=== PATIENT | female | born 1975 | race Caucasian/White ===

== ENCOUNTER 2024-01-27 20:24 | Observation (INO) ==
--- NOTE | 2024-01-27 20:55 | Emergency Department Note ---
Impression & Plan Syncope, Nausea, Tachycardia ED Provider Note NAME: JANICE PALACIOS AGE: 48 SEX: F : 1975 ARRIVES VIA: Ambulance INFORMANT: Patient ED PROVIDER(S): Eze Alfredo DO CHIEF COMPLAINT: syncope HPI: Patient is a 48-year-old female who presents to the ER for syncopal episode x 3. She was sitting with her friend at dinner felt very hot and flushed. She felt lightheaded when outside and she passed out. She woke back up and then passed out this occurred for a total of 3 times. She does not remember this occurring. She denies any chest pain or shortness of breath that she was aware of. No belly pain. She was nauseated on the way over here but not during the episode. No dysuria, urgency, or frequency. No weakness or numbness in the arms or legs. No other exacerbating or remitting factors. Denies any history of diabetes, hypertension, hyperlipidemia or CAD. ADDITIONAL HISTORY OBTAINED: Per HPI Chronic Medical/Social Conditions Affecting Care: Per HPI PAST MEDICAL HISTORY:See Below PAST SURGICAL HISTORY:See Below FAMILY HISTORY:See Below SOCIAL HISTORY:See Below HOME MEDICATIONS:See Below ALLERGIES:See Below VITALS:See Below PHYSICAL EXAMINATION: GENERAL: Sitting up in bed, alert, well appearing, well nourished, no distress, non-toxic EYE EXAM: normal conjunctiva. PERRL and EOM's intact. OROPHARYNX: no exudate, no erythema, lips, buccal mucosa, and tongue normal and mucous membranes are moist NECK: supple, no nuchal rigidity, no adenopathy, non-tender LUNGS: Clear to auscultation. Normal chest wall mechanics HEART: no murmurs, S1 normal and S2 normal ABDOMEN: abdomen soft, non-tender, normo-active bowel sounds, no masses, no rebound or guarding. BACK: Back is symmetrical on inspection and there is no deformity, no midline tenderness, no CVA tenderness. SKIN: no rashes and no bruising UPPER EXTREMITIES: upper extremities are grossly normal. LOWER EXTREMITIES: No pitting edema. Calves are equal bilaterally NEURO EXAM: Normal sensorium, cranial nerves II-XII intact, normal speech, no weakness of arms, no weakness of legs. No drift. Finger to nose intact. Gross sensation intact. MEDICAL DECISION MAKING: Patient is a 48-year-old female who presents to the ER for the above-stated complaint. IV was established and blood work was obtained. Labs show no significant leukocytosis or anemia. D-dimer was negative and low risk patient will not be pursued any further. BMP along LFTs bilirubin was unremarkable. Troponins were negative x 2. Lipase normal. Alcohol negative. Patient did pass out on 3 separate occasions. She has remained persistently tachycardic. Chest x-ray was unremarkable. EKG was nondiagnostic. She was given IV fluids and oral Tylenol. She was updated bedside. Discussed case with the hospitalist for further evaluation management and treatment due to 3 episodes of syncope which were witnessed. There is no seizure activity. Again I do favor vasovagal in nature but cannot be certain with this occurring 3 times did favor observation. Consults/Care Managements Discussions: Per [facility] Triage Nursing notes reviewed. Limited review of prior medical records performed Vital Signs: reviewed and remarkable for no significant abnormalities Differential diagnosis: Differential Diagnosis includes but is not limited to ischemic Stroke, hemorrhagic stroke, bells palsy, mass, neoplasm, migraine headache, seizure, subarachnoid hemorrhage, TIA, and transient global amnesia. ER treatment provided: See below Diagnostics interpreted by me include EKG and cardiac monitoring as listed below: -Cardiac Monitoring: An order was placed for continuous cardiac monitoring. The monitor shows a rate of 80 with sinus rhythm. -ECG: Sinus rhythm rate of 88 Right axis No PVCs QTc 445 -Laboratory studies:Interpreted by me as stated above in [facility] and shown below. Imaging studies: Xrays: As interpreted by me: Portable AP upright 1 view of the chest shows no focal infiltrate CTs show: none Procedures:none Critical Care: None Past Med/Surg History Problem List (Updated 01/28/24 @ 00:30 by Eze Alfredo DO) Tachycardia (Acute) Nausea (Acute) Syncope (Acute) Superior labrum mrsqqfjo-ur-yeyznqnay (SLAP) tear of right shoulder Injury of right shoulder Surgical History (Updated 02/28/23 @ 09:12 by Tyler Blas) Hx of dilation and curettage History of hand surgery Family History (Updated 02/28/23 @ 09:15 by Tyler Blas) Other Cancer Diabetes FH: heart attack Stroke Social History Smoking Status: Never smoker Feels Safe at Home: Yes Allergies Allergies Allergy/AdvReac Type Severity Reaction Status Date / Time No Known Allergies Allergy Verified 02/28/23 09:06 Home Meds Home Medications Medication Instructions Recorded Confirmed acetaminophen 500 mg tablet 500 mg PO Q6H PRN 02/28/23 02/28/23 (Tylenol Extra Strength) ibuprofen 200 mg tablet (Advil) 200 mg PO Q6H PRN 02/28/23 02/28/23 Results & Data (ED) Vital Signs Vital Signs - 24 hr 01/27/24 20:31 01/27/24 20:35 01/27/24 20:37 Temperature 36.7 C 36.7 C Temperature Source Oral Oral Pulse Rate 96 H 98 H Pulse Rate [Finger] 98 H Pulse Rhythm [Finger] Pulse Strength [Finger] Respiratory Rate 18 18 Respiratory Effort / Characteristics Non-Labored Spontaneous Non-Labored Spontaneous Respiratory Depth Normal Normal Blood Pressure 136/87 Blood Pressure [Right Arm] 136/87 Blood Pressure Mean 103 Blood Pressure Mean [Right Arm] 103 Blood Pressure Position Sitting Blood Pressure Position [Right Arm] Sitting Pulse Oximetry 99 99 Oxygen Delivery Method Room Air Room Air Sepsis Recent Fever Within 48 Hours No Sepsis New/Unexplained Change in Mental Status No Sepsis Action Taken by Nursing No Action Required 01/27/24 20:50 01/27/24 21:45 01/27/24 23:00 Temperature Temperature Source Pulse Rate 97 H Pulse Rate [Finger] 96 H 101 H Pulse Rhythm [Finger] Regular Regular Pulse Strength [Finger] Normal Normal Respiratory Rate 18 18 18 Respiratory Effort / Characteristics Non-Labored Spontaneous Non-Labored Spontaneous Respiratory Depth Normal Normal Blood Pressure Blood Pressure [Right Arm] 116/76 129/77 Blood Pressure Mean Blood Pressure Mean [Right Arm] 89 94 Blood Pressure Position Blood Pressure Position [Right Arm] Sitting Lying Pulse Oximetry 99 100 100 Oxygen Delivery Method Room Air Room Air Room Air Sepsis Recent Fever Within 48 Hours Sepsis New/Unexplained Change in Mental Status Sepsis Action Taken by Nursing 01/28/24 00:23 Temperature Temperature Source Pulse Rate 97 H Pulse Rate [Finger] Pulse Rhythm [Finger] Pulse Strength [Finger] Respiratory Rate Respiratory Effort / Characteristics Respiratory Depth Blood Pressure Blood Pressure [Right Arm] Blood Pressure Mean Blood Pressure Mean [Right Arm] Blood Pressure Position Blood Pressure Position [Right Arm] Pulse Oximetry Oxygen Delivery Method Sepsis Recent Fever Within 48 Hours Sepsis New/Unexplained Change in Mental Status Sepsis Action Taken by Nursing Laboratory Data 01/27/24 20:57 01/27/24 20:57 Lab Results 01/27/24 01/27/24 01/27/24 Range/Units 20:57 20:58 23:02 WBC 6.17 (4.8-10.8) K/ul RBC 4.29 (4.20-5.40) M/uL Hgb 12.8 (12.0-16.0) g/dl Hct 37.5 (37.0-47.0) % MCV 87.4 (80.0-100.0) fL MCH 29.8 (25.0-34.0) pg MCHC 34.1 (32.0-36.0) g/dL RDW Std Deviation 39.6 (36.4-46.3) fL RDW Coeff of Marimar 12.3 (11.5-14.5) % Plt Count 238 (130-400) K/uL MPV 9.6 (9.4-12.4) fL Immature Gran % (Auto) 0.3 % Neut % (Auto) 52.2 % Lymph % (Auto) 35.7 % [place] % (Auto) 8.4 % Eos % (Auto) 2.1 % Baso % (Auto) 1.3 % Neut # (Auto) 3.22 (1.40-6.50) K/uL Lymph # (Auto) 2.20 (1.20-3.40) K/uL [place] # (Auto) 0.52 (0.11-0.59) K/uL Eos # (Auto) 0.13 (0.00-0.50) K/uL Baso # (Auto) 0.08 (0.00-0.20) K/uL Immature Gran # (Auto) 0.02 (0.01-0.20) K/uL D-Dimer < 190 (0-500) ug/L FEU Sodium 137 (136-145) mmol/L Potassium 3.5 (3.5-5.1) mmol/L Chloride 106 (98-107) mmol/L Carbon Dioxide 27 (21-32) mmol/L Anion Gap 4 (3-11) BUN 18 (6-23) mg/dl Creatinine 0.81 (0.6-1.2) mg/dl Est Cr Clr Drug Dosing 67.2 ml/min eGFR 89.49 BUN/Creatinine Ratio 22.2 H (10-20) Glucose 109 H (70-99(Fasting)) mg/dl Calcium 9.2 (8.6-10.3) mg/dl Total Bilirubin 0.3 (0.2-1.0) mg/dl AST 19 (13-39) U/L ALT 13 (7-52) U/L Alkaline Phosphatase 41 (34-104) U/L Troponin I High Sens < 2.3 2.8 (0-14) pg/ml Total Protein 6.6 (6.0-8.3) gm/dl Albumin 4.3 (3.4-5.0) gm/dl Globulin 2.3 L (2.5-4.0) gm/dl Albumin/Globulin Ratio 1.9 (0.9-2) Lipase 50 (11-82) U/L Ethyl Alcohol mg/dL < 10.0 (<10.0) mg/dl Administered Medications Discontinued Medications Acetaminophen (Acetaminophen 325 Mg Tab) 650 mg PO NOW STA Stop: 01/27/24 23:41 Last Admin: 01/27/24 23:45 Dose: 650 mg Documented By: SALENA Sodium Chloride (Nss) 1,000 mls @ 999 mls/hr IV .Q1H1M ONE Stop: 01/27/24 21:50 Last Infusion: 01/27/24 22:05 Dose: Infused Documented By: Admin: 01/27/24 21:01 Dose: 999 mls/hr Documented By: TEN Ondansetron HCl (Ondansetron Inj 2 Mg/Ml 2 Ml Vial) 4 mg IV NOW STA Stop: 01/27/24 20:51 Last Admin: 01/27/24 21:01 Dose: 4 mg Documented By: TEN Imaging Data Radiologist's Impression: Chest X-Ray 01/27/24 20:50 Exam(s): XR CXR 1 VIEW EXAM: XR Chest, 1 View CLINICAL HISTORY: Reason for exam: Chest pain, nonspecific. TECHNIQUE: Frontal view of the chest. COMPARISON: No relevant prior studies available. FINDINGS: Lungs: Unremarkable. No consolidation. Pleural space: Unremarkable. No pleural effusion or pneumothorax. Heart: Unremarkable. No cardiomegaly or pulmonary vascular congestion. Bones/joints: No acute fracture. No dislocation. IMPRESSION: No evidence of acute cardiopulmonary disease. Electronically signed by: Erick Tyler M.D. 01/27/24 22:08 PM Discharge Plan Visit Data Chief Complaint: Syncope Stated Complaint: SYNCOPE X2 ED Provider: Eze Alfredo Discharge Problem: Syncope, Nausea, Tachycardia Forms Stand Alone Forms: My [facility] [employer] Prescriptions Prescriptions: No Action ibuprofen [Advil] 200 mg tablet 200 mg PO Q6H PRN acetaminophen [Tylenol Extra Strength] 500 mg tablet 500 mg PO Q6H PRN Referrals Referrals: PCP,NO [Physician] - Discharge Problem: Syncope Qualifiers: Syncope type: unspecified Qualified Code(s): R55 - Syncope and collapse
[2024-01-27] MEDS: SODIUM CHLORIDE 0.9% 1,000 ML IV ONE (21:01)
[2024-01-27] MEDS: ONDANSETRON INJ 2 MG/ML 2 ML VIAL IV STA (21:01)
[2024-01-27 21:26] LABS: Alanine Aminotransferase 13 U/L (7-52); Albumin Globulin Ratio 1.9 (0.9-2); Albumin Level 4.3 gm/dl (3.4-5.0); Alkaline Phosphatase 41 U/L (34-104); Anion Gap 4 (3-11); Aspartate Aminotransferase 19 U/L (13-39); BUN Creatinine Ratio 22.2 (10-20); Bilirubin,Total 0.3 mg/dl (0.2-1.0); Blood Urea Nitrogen 18 mg/dl (6-23); Calcium 9.2 mg/dl (8.6-10.3); Carbon Dioxide 27 mmol/L (21-32); Chloride 106 mmol/L (98-107); Creatinine Clr Calc Pharmacy 67.2 ml/min; Globulin 2.3 gm/dl (2.5-4.0); Glucose 109 mg/dl (70-99(Fasting)); Lipase 50 U/L (11-82); Potassium 3.5 mmol/L (3.5-5.1); Sodium 137 mmol/L (136-145); Total Protein 6.6 gm/dl (6.0-8.3)
[2024-01-27 21:32] LABS: Troponin I High Sensitivity < 2.3 pg/ml (0-14)
[2024-01-27 21:41] LABS: Basophils # (auto) 0.08 K/uL (0.00-0.20); Basophils % (auto) 1.3 %; Eosinophils # (auto) 0.13 K/uL (0.00-0.50); Eosinophils % (auto) 2.1 %; Hematocrit (blood only) 37.5 % (37.0-47.0); Hemoglobin 12.8 g/dl (12.0-16.0); Immature Granulocytes # (auto) 0.02 K/uL (0.01-0.20); Immature Granulocytes % (auto) 0.3 %; Lymphocytes % (auto) 35.7 %; Mean Corpuscular Hemoglobin 29.8 pg (25.0-34.0); Mean Corpuscular Hgb Conc 34.1 g/dL (32.0-36.0); Mean Corpuscular Volume 87.4 fL (80.0-100.0); Mean Platelet Volume 9.6 fL (9.4-12.4); Monocytes # (auto) 0.52 K/uL (0.11-0.59); Monocytes % (auto) 8.4 %; Neutrophils # (auto) 3.22 K/uL (1.40-6.50); Neutrophils % (auto) 52.2 %; Platelet Count 238 K/uL (130-400); RDW Coefficient of Variation 12.3 % (11.5-14.5); RDW Standard Deviation 39.6 fL (36.4-46.3); Red Blood Count 4.29 M/uL (4.20-5.40); White Blood Count 6.17 K/ul (4.8-10.8)
--- NOTE | 2024-01-27 22:09 | XRay Report ---
Exam(s): XR CXR 1 VIEW EXAM: XR Chest, 1 View CLINICAL HISTORY: Reason for exam: Chest pain, nonspecific. TECHNIQUE: Frontal view of the chest. COMPARISON: No relevant prior studies available. FINDINGS: Lungs: Unremarkable. No consolidation. Pleural space: Unremarkable. No pleural effusion or pneumothorax. Heart: Unremarkable. No cardiomegaly or pulmonary vascular congestion. Bones/joints: No acute fracture. No dislocation. IMPRESSION: No evidence of acute cardiopulmonary disease. Electronically signed by: Erick Tyler M.D. 01/27/24 22:08 PM
[2024-01-27] MEDS: ACETAMINOPHEN 325 MG TAB PO STA (23:45)
[2024-01-28 00:05] LABS: D Dimer < 190 ug/L FEU (0-500)
[2024-01-28] MEDS ORDERED: ACETAMINOPHEN 325 MG TAB PO PRN (01:57)
[2024-01-28] MEDS ORDERED: POLYETHYLENE (MIRALAX) 17 GM PACK PO PRN (01:57)
[2024-01-28] MEDS ORDERED: NITROGLYCERIN SL 0.4 MG/TAB TAB SL PRN (01:57)
--- NOTE | 2024-01-28 02:07 | History & Physical Report ---
Date of Service January 28, 2024 Assessment & Plan (1) Syncope: Plan: 48-year-old female with past medical history significant for migraine presents with syncope. Patient was in a restaurant and had a cocktail and she was eating when suddenly felt very hot. As patient felt hot went outside and her friend was with her. While she was sitting on the chair she passed out for few seconds. Her friend was with her and she held her. Her friend told her that s he passed out short moments 3 times. After she woke up she was confused for very short period time and was back to normal. No biting of the tongue. She was shaking but she attributes it to her anxiety. She had urinary incontinence during the episode. Never had this episodes before. Currently has some headache. Has some dizziness. Vision is okay. No earache. No runny nose. No sore throat. No cough. No fevers. Eating and drinking okay. Denies any chest pain or shortness of breath. No nausea. No abdominal pain. Normal bowel and bladder movements. Can walk and climb steps okay. Denies allergic reactions. Syncope EKG and 2 sets of troponin negative Labs okay D-dimer negative Will follow CT head Will follow serial enzymes and echo Telemetry Orthostatics Gentle fluids Will also get EEG as patient had episode of urinary incontinence Consult cardiology in a.m. for further recommendation Close monitor DVT prophylaxis SCDs Disposition Observation telemetry Full code History of Present Illness Chief Complaint: Syncope Primary Care Provider: Westley Hester DO 48-year-old female with past medical history significant for migraine presents with syncope. Patient was in a restaurant and had a cocktail and she was eating when suddenly felt very hot. As patient felt hot went outside and her friend was with her. While she was sitting on the chair she passed out for few seconds. Her friend was with her and she held her. Her friend told her that she passed out short moments 3 times. After she woke up she was confused for very short period time and was back to normal. No biting of the tongue. She w as shaking but she attributes it to her anxiety. She had urinary incontinence during the episode. Never had this episodes before. Currently has some headache. Has some dizziness. Vision is okay. No earache. No runny nose. No sore throat. No cough. No fevers. Eating and drinking okay. Denies any chest pain or shortness of breath. No nausea. No abdominal pain. Normal bowel and bladder movements. Can walk and climb steps okay. Denies allergic reactions. Past medical history. As mentioned above Past surgical history. Colonoscopy. Dilatation curettage. Social history. . No smoking. Alcohol occasional. No drug use. Family history. Father has coronary disease. Diabetes. Lymphoma. Metabolic syndrome. Mother has hyperlipidemia. Osteoarthritis. Thyroid disorder. Son has peanut allergy. Daughter has depression. Paternal grandfather had pancreatic cancer. Emphysema. Paternal grandmother had lung cancer. Maternal grandfather had lung cancer. Allergies Allergy/AdvReac Type Severity Reaction Status Date / Time No Known Allergies Allergy Verified 02/28/23 09:06 Past Med/Surg History Problem List (Updated 01/28/24 @ 00:30 by Eze Alfredo DO) Tachycardia (Acute) Nausea (Acute) Syncope (Acute) Superior labrum mailyrhv-td-bxzwcoeve (SLAP) tear of right shoulder Injury of right shoulder Surgical History (Updated 02/28/23 @ 09:12 by Tyler Blas) Hx of dilation and curettage History of hand surgery Family History (Updated 02/28/23 @ 09:15 by Tyler Blas) Other Cancer Diabetes FH: heart attack Stroke Social History Smoking Status: Never smoker Hx Alcohol Use: Yes Alcohol type: wine Hx Substance Use: No Preferred Language: Yi Vehicle Service Agent Required: No Beliefs That Will Affect Care: None Current Living Situation: Family Feels Safe at Home: Yes Assistive Devices: None Review of Systems Review of Systems: All systems reviewed & are unremarkable except as noted in HPI & below Physical Exam Physical Exam: General-Not in acute distress Head- atraumatic Eyes- PERRL. ENT- oropharynx clear Neck- supple, no JVD. Lungs- clear to auscultation no wheezing or crackles. Heart- regular rate and rhythm; no murmur, no gallop. Abdomen- normal bowel sounds, soft, nontender, no distension Extremities- no pretibial edema, no erythema seen. Neuro- alert, oriented PERRL, no facial palsy; no dysarthria; motor 5/5 bilaterally; coordination of movements normal, no pronator drift. Skin- warm & dry Results & Data Results & Data Vital Signs (Past 12 Hours) Vital Signs Temp Pulse Pulse Resp BP BP Pulse Ox 01/28/24 00:23 97 H 01/27/24 23:00 101 H 18 129/77 100 01/27/24 21:45 96 H 18 116/76 100 01/27/24 20:50 97 H 18 99 01/27/24 20:37 36.7 C 98 H 18 136/87 99 01/27/24 20:35 36.7 C 98 H 18 136/87 99 01/27/24 20:31 96 H O2 Del Method 01/28/24 00:23 01/27/24 23:00 Room Air 01/27/24 21:45 Room Air 01/27/24 20:50 Room Air 01/27/24 20:37 Room Air 01/27/24 20:35 Room Air 01/27/24 20:31 Diagnostic Findings Laboratory Results WBC 6.17 K/ul (4.8-10.8) 01/27/24 20:57 RBC 4.29 M/uL (4.20-5.40) 01/27/24 20:57 Hgb 12.8 g/dl (12.0-16.0) 01/27/24 20:57 Hct 37.5 % (37.0-47.0) 01/27/24 20:57 MCV 87.4 fL (80.0-100.0) 01/27/24 20:57 MCH 29.8 pg (25.0-34.0) 01/27/24 20:57 MCHC 34.1 g/dL (32.0-36.0) 01/27/24 20:57 RDW Std Deviation 39.6 fL (36.4-46.3) 01/27/24 20:57 RDW Coeff of Marimar 12.3 % (11.5-14.5) 01/27/24 20:57 Plt Count 238 K/uL (130-400) 01/27/24 20:57 MPV 9.6 fL (9.4-12.4) 01/27/24 20:57 Immature Gran % (Auto) 0.3 % 01/27/24 20:57 Neut % (Auto) 52.2 % 01/27/24 20:57 Lymph % (Auto) 35.7 % 01/27/24 20:57 [place] % (Auto) 8.4 % 01/27/24 20:57 Eos % (Auto) 2.1 % 01/27/24 20:57 Baso % (Auto) 1.3 % 01/27/24 20:57 Neut # (Auto) 3.22 K/uL (1.40-6.50) 01/27/24 20:57 Lymph # (Auto) 2.20 K/uL (1.20-3.40) 01/27/24 20:57 [place] # (Auto) 0.52 K/uL (0.11-0.59) 01/27/24 20:57 Eos # (Auto) 0.13 K/uL (0.00-0.50) 01/27/24 20:57 Baso # (Auto) 0.08 K/uL (0.00-0.20) 01/27/24 20:57 Immature Gran # (Auto) 0.02 K/uL (0.01-0.20) 01/27/24 20:57 D-Dimer < 190 ug/L FEU (0-500) 01/27/24 20:58 Sodium 137 mmol/L (136-145) 01/27/24 20:57 Potassium 3.5 mmol/L (3.5-5.1) 01/27/24 20:57 Chloride 106 mmol/L (98-107) 01/27/24 20:57 Carbon Dioxide 27 mmol/L (21-32) 01/27/24 20:57 Anion Gap 4 (3-11) 01/27/24 20:57 BUN 18 mg/dl (6-23) 01/27/24 20:57 Creatinine 0.81 mg/dl (0.6-1.2) 01/27/24 20:57 Est Cr Clr Drug Dosing 67.2 ml/min 01/27/24 20:57 eGFR 89.49 01/27/24 20:57 BUN/Creatinine Ratio 22.2 (10-20) H 01/27/24 20:57 Glucose 109 mg/dl (70-99(Fasting)) H 01/27/24 20:57 Calcium 9.2 mg/dl (8.6-10.3) 01/27/24 20:57 Total Bilirubin 0.3 mg/dl (0.2-1.0) 01/27/24 20:57 AST 19 U/L (13-39) 01/27/24 20:57 ALT 13 U/L (7-52) 01/27/24 20:57 Alkaline Phosphatase 41 U/L (34-104) 01/27/24 20:57 Troponin I High Sens 2.8 pg/ml (0-14) 01/27/24 23:02 Total Protein 6.6 gm/dl (6.0-8.3) 01/27/24 20:57 Albumin 4.3 gm/dl (3.4-5.0) 01/27/24 20:57 Globulin 2.3 gm/dl (2.5-4.0) L 01/27/24 20:57 Albumin/Globulin Ratio 1.9 (0.9-2) 01/27/24 20:57 Lipase 50 U/L (11-82) 01/27/24 20:57 Ethyl Alcohol mg/dL < 10.0 mg/dl (<10.0) 01/27/24 20:57 Impressions Chest X-Ray 01/27/24 20:50 Exam(s): XR CXR 1 VIEW EXAM: XR Chest, 1 View CLINICAL HISTORY: Reason for exam: Chest pain, nonspecific. TECHNIQUE: Frontal view of the chest. COMPARISON: No relevant prior studies available. FINDINGS: Lungs: Unremarkable. No consolidation. Pleural space: Unremarkable. No pleural effusion or pneumothorax. Heart: Unremarkable. No cardiomegaly or pulmonary vascular congestion. Bones/joints: No acute fracture. No dislocation. IMPRESSION: No evidence of acute cardiopulmonary disease. Electronically signed by: Erick Tyler M.D. 01/27/24 22:08 PM ECG Additional Comments: ECG per normal sinus rhythm rate 90. No acute ST changes seen. QTc 437 Code Status & VTE Plan VTE Prophylaxis Plan VTE Prophylaxis will be ordered: Yes (1) Syncope Syncope type: unspecified Qualified Code(s): R55 - Syncope and collapse
[2024-01-28] MEDS: SODIUM CHLORIDE 0.9% 1,000 ML IV SCH (02:15)
[2024-01-28 06:09] LABS: Basophils # (auto) 0.05 K/uL (0.00-0.20); Basophils % (auto) 0.7 %; Eosinophils # (auto) 0.09 K/uL (0.00-0.50); Eosinophils % (auto) 1.3 %; Hematocrit (blood only) 35.4 % (37.0-47.0); Immature Granulocytes # (auto) 0.01 K/uL (0.01-0.20); Immature Granulocytes % (auto) 0.1 %; Lymphocytes # (auto) 1.87 K/uL (1.20-3.40); Lymphocytes % (auto) 26.5 %; Mean Corpuscular Hemoglobin 29.6 pg (25.0-34.0); Mean Corpuscular Hgb Conc 33.9 g/dL (32.0-36.0); Mean Corpuscular Volume 87.2 fL (80.0-100.0); Mean Platelet Volume 9.9 fL (9.4-12.4); Monocytes # (auto) 0.65 K/uL (0.11-0.59); Monocytes % (auto) 9.2 %; Neutrophils # (auto) 4.39 K/uL (1.40-6.50); Neutrophils % (auto) 62.2 %; Platelet Count 239 K/uL (130-400); RDW Coefficient of Variation 12.3 % (11.5-14.5); RDW Standard Deviation 39.6 fL (36.4-46.3); Red Blood Count 4.06 M/uL (4.20-5.40); White Blood Count 7.06 K/ul (4.8-10.8)
[2024-01-28 06:27] LABS: Anion Gap 3 (3-11); BUN Creatinine Ratio 21.4 (10-20); Blood Urea Nitrogen 15 mg/dl (6-23); Calcium 8.4 mg/dl (8.6-10.3); Carbon Dioxide 24 mmol/L (21-32); Chloride 113 mmol/L (98-107); Creatinine Clr Calc Pharmacy 77.7 ml/min; Glucose 104 mg/dl (70-99(Fasting)); Sodium 140 mmol/L (136-145)
[2024-01-28 06:34] LABS: Troponin I High Sensitivity < 2.3 pg/ml (0-14)
[2024-01-28] MEDS ORDERED: INFLUENZA VACC TS2024-25(6m+)/PF (IIV3) 0.5mL Syr IM ONE (08:00)
[2024-01-28 08:05] VITALS: O2SAT 100
--- NOTE | 2024-01-28 08:18 | Cardiology Consultation ---
Date of Consultation January 28, 2024 Assessment & Plan (1) Syncope: Plan Assessment: 48 year old female with no prior cardiac history admitted after a witnessed syncopal event. No acute EKG changes and negative troponin series. Cardiology requested for eval and recommendations. Case has been discussed with Dr. Rausch. Further recommendations regarding plan of care as per his assessment. I spent a total of 40 minutes on the date of service in preparation, delivery, documentation of the care provided to the patient excluding any time spent in the performance of separately billed services. SLADE Alicea [facility] Cardiology [facility] Supervising Physician Co-Signing Physician Notes Attending Staff: Pt seen and examined with AP Staff Concur with observations and plans 48 yo woman presenting s/p syncope Cocktail -restaurant Hot + flushed Overheated Went outside to get air "passed out" for a few seconds +Shaking Urinary incontinence Tox - no major ETOH level; no other drugs were checked EKG - NSR no changes - ME WNL, No significant LVH, no prolonged QTC, no evidence of active ischemia Troponin WNL x 3 ECHO -01/28/2024 * LVEF 55-60% * No WMA * Normal LV wall thickness * Trace MR * No * No evidence of Pulmonary Hypertension CT Head - no masses, bleeding or evidence of CVA Med Hx Migraine SBP 123/79 Normal Physical exam Plans: * Episode appears to be consistent with vaso-vagal syncope * Episode of urinary incontinence, however, raised question of seizures * EEG planned * No abnormalities on Head CT * ECHO - no or HOCM; no evidence of LVH/HCM, no Pulm HTN * Patient may have been slightly dehydrated + ETOH * No medications * 60 min spent addressing challenges, educating and advancing daily plan of care Kyle Rausch History of Present Illness Reason for Consultation: syncope Requesting Physician: Nisha hospitalist Attending Physician: Eleanor Russell MD History of Present Illness HPI: Patient is 48 year old female with PMHx significant for migraines presented to the ED after a syncopal episode. Patient reported that she was in a restaurant had a cocktail, was eating when she became "overheated". She went outside and while sitting on a chair, her friend witnessed her pass out for a few seconds for a total of 3 separate episodes. Reports post episode confusion that quickly resolved and was "shaking" after, but states she felt it was due to her anxiety. She also had urinary incontinence. Since admission, patient denies any complaints, no chest pain, pressure, palpitations, shortness of breath, PND, pre-syncope, syncope or edema. No recurrence of symptoms. EKG on admission NSR Echocardiogram pending Troponin negative x3 D-dimer negative Labs, diagnostics, EKG, vitals and telemetry reviewed. Allergies Allergy/AdvReac Type Severity Reaction Status Date / Time No Known Allergies Allergy Verified 02/28/23 09:06 Patient History Surgical History (Updated 02/28/23 @ 09:12 by Tyler Blas) Hx of dilation and curettage History of hand surgery Family History (Updated 02/28/23 @ 09:15 by Tyler Blas) Other Cancer Diabetes FH: heart attack Stroke Social History Smoking Status: Never smoker Hx Alcohol Use: Yes Alcohol type: wine Hx Substance Use: No Preferred Language: Italian [employer] Required: No Beliefs That Will Affect Care: None Current Living Situation: Family Feels Safe at Home: Yes Assistive Devices: None Review of Systems Review of Systems: All systems reviewed & are unremarkable except as noted in HPI & below Physical Exam Physical Exam: thin woman in NAD No elevation in JVP No carotid bruits S1S2 - no , HOCM or significant MR murmurs appreciated CTA B + BS No C/C/E Warm and well-perfused No neurologic deficits noted Constitutional: WD/WN, vitals as above Neck: normal visual inspection and trachea midline Respiratory: normal respiratory effort, lungs clear to auscultation Cardiovascular: RRR, no murmur, no edema Extremities: no edema Skin: no rashes, warm and dry Psychiatric: A+Ox3, euthymic affect Results & Data Vital Signs (Past 12 Hours) Vital Signs Temp Pulse Pulse Resp BP BP Pulse Ox 01/28/24 08:03 36.8 C 81 17 123/79 100 01/28/24 07:00 79 01/28/24 02:38 36.7 C 95 H 16 127/77 97 01/28/24 01:51 92 H 01/28/24 01:50 01/28/24 01:24 91 H 15 97 01/28/24 01:00 95 H 15 96 01/28/24 01:00 107/71 01/28/24 00:51 97 H 18 97 01/28/24 00:42 101 H 18 97 01/28/24 00:36 93 H 20 96 01/28/24 00:23 97 H 01/28/24 00:06 100 H 14 96 01/28/24 00:00 114/83 01/27/24 23:51 107 H 18 95 01/27/24 23:42 109 H 15 97 01/27/24 23:21 102 H 15 98 01/27/24 23:18 107 H 16 99 01/27/24 23:00 101 H 18 129/77 100 01/27/24 22:57 105 H 19 99 01/27/24 22:48 98 H 17 98 01/27/24 22:39 95 H 17 99 01/27/24 22:21 98 H 15 100 01/27/24 22:00 100 H 23 100 01/27/24 22:00 123/82 01/27/24 22:00 123/82 01/27/24 22:00 123/82 01/27/24 22:00 123/82 01/27/24 21:51 101 H 14 100 01/27/24 21:45 116/76 01/27/24 21:45 97 H 14 99 01/27/24 21:45 96 H 18 116/76 100 01/27/24 21:42 92 H 13 100 01/27/24 21:12 100 H 18 99 01/27/24 20:50 97 H 18 99 01/27/24 20:37 36.7 C 98 H 18 136/87 99 01/27/24 20:35 36.7 C 98 H 18 136/87 99 01/27/24 20:31 96 H 01/27/24 20:26 136/87 O2 Del Method 01/28/24 08:03 Room Air 01/28/24 07:00 01/28/24 02:38 Room Air 01/28/24 01:51 01/28/24 01:50 Room Air 01/28/24 01:24 01/28/24 01:00 01/28/24 01:00 01/28/24 00:51 01/28/24 00:42 01/28/24 00:36 01/28/24 00:23 01/28/24 00:06 01/28/24 00:00 01/27/24 23:51 01/27/24 23:42 01/27/24 23:21 01/27/24 23:18 01/27/24 23:00 Room Air 01/27/24 22:57 01/27/24 22:48 01/27/24 22:39 01/27/24 22:21 01/27/24 22:00 01/27/24 22:00 01/27/24 22:00 01/27/24 22:00 01/27/24 22:00 01/27/24 21:51 01/27/24 21:45 01/27/24 21:45 01/27/24 21:45 Room Air 01/27/24 21:42 01/27/24 21:12 01/27/24 20:50 Room Air 01/27/24 20:37 Room Air 01/27/24 20:35 Room Air 01/27/24 20:31 01/27/24 20:26 Laboratory Results Cardiac Enzymes 01/27/24 01/27/24 01/28/24 Range/Units 20:57 23:02 05:23 AST 19 (13-39) U/L Troponin I High Sens < 2.3 2.8 < 2.3 (0-14) pg/ml CBC 01/27/24 01/28/24 Range/Units 20:57 05:23 WBC 6.17 7.06 (4.8-10.8) K/ul RBC 4.29 4.06 L (4.20-5.40) M/uL Hgb 12.8 12.0 (12.0-16.0) g/dl Hct 37.5 35.4 L (37.0-47.0) % Plt Count 238 239 (130-400) K/uL Neut # (Auto) 3.22 4.39 (1.40-6.50) K/uL Lymph # (Auto) 2.20 1.87 (1.20-3.40) K/uL [place] # (Auto) 0.52 0.65 H (0.11-0.59) K/uL Eos # (Auto) 0.13 0.09 (0.00-0.50) K/uL Baso # (Auto) 0.08 0.05 (0.00-0.20) K/uL Comprehensive Metabolic Panel 01/27/24 01/28/24 Range/Units 20:57 05:23 Sodium 137 140 (136-145) mmol/L Potassium 3.5 4.0 (3.5-5.1) mmol/L Chloride 106 113 H (98-107) mmol/L Carbon Dioxide 27 24 (21-32) mmol/L BUN 18 15 (6-23) mg/dl Creatinine 0.81 0.70 (0.6-1.2) mg/dl Glucose 109 H 104 H (70-99(Fasting)) mg/dl Calcium 9.2 8.4 L (8.6-10.3) mg/dl AST 19 (13-39) U/L ALT 13 (7-52) U/L Alkaline Phosphatase 41 (34-104) U/L Total Protein 6.6 (6.0-8.3) gm/dl Albumin 4.3 (3.4-5.0) gm/dl Intake and Output 01/27/24 01/28/24 01/28/24 22:59 06:59 14:59 Intake Total 1000 / 1000 Balance 1000 / 1000 Intake: IV 1000 / 1000 Sodium Chloride 0.9% 1,000 ml @ 1000 / 1000 999 mls/hr IV .Q1H1M ONE Rx#: [id number] Other: Other Intake Source Patient is NPO # Unmeasured Voids 1 Weight 59.5 kg 56.6 kg Weight Measurement Method [facility] Medications Administered Current Inpatient Medications Acetaminophen (Acetaminophen 325 Mg Tab) 650 mg PO Q4H PRN PRN Reason: Pain or Fever Stop: 02/27/24 01:56 Sodium Chloride (Nss) 1,000 mls @ 80 mls/hr IV .[id number] [facility] Stop: 01/29/24 01:56 Last Admin: 01/28/24 02:15 Dose: 80 mls/hr Nitroglycerin (Nitroglycerin Sl 0.4 Mg/Tab Tab) 0.4 mg SL Q5M PRN PRN Reason: Chest Pain Stop: 02/27/24 01:56 Polyethylene Glycol (Polyethylene (Miralax) 17 Gm Pack) 17 gm PO DAILY PRN PRN Reason: Constipation Stop: 02/27/24 01:56 (1) Syncope Syncope type: unspecified Qualified Code(s): R55 - Syncope and collapse
--- NOTE | 2024-01-28 09:07 | CT Scan Report ---
CT OF THE HEAD WITHOUT CONTRAST CLINICAL HISTORY: Syncope. COMPARISON STUDY: No previous studies for comparison. CT DOSE: 547.75 mGy.cm TECHNIQUE: Helical axial images of the head were obtained without IV contrast. Automated exposure con trol was utilized for the study. A dose lowering technique was utilized adhering to the principles o f ALARA. FINDINGS: No acute intracranial hemorrhage, midline shift or mass effect is present. The ventricular system is unremarkable. The basal cisterns are patent. No extra-axial collections are present. There are no findings to suggest acute dural sinus thrombosis or acute territorial infarct. No significant calvarial abnormalities are present. Visualized portions of the sinuses and mastoid air cells are lucila ar. IMPRESSION: 1. No acute intracranial findings. 2. No calvarial fractures. ACT 112: Negative or not required by law. Electronically signed by: Marv Drummond M.D. 01/28/2024 9:04 AM
[2024-01-28 10:44] VITALS: BP 131/85; RESP 18; TEMP 98.4
--- NOTE | 2024-01-28 14:02 | Discharge Summary ---
Discharge Summary Date of Service January 28, 2024 Principal Dx & Hospital Course #1 = Principal Diagnosis (1) Syncope: Ms. Greenberg is a 48-year-old female with past medical history significant for migraine presented with syncope. Patient was in a restaurant and had a cocktail and she was eating when suddenly felt very hot and fainted for a few moments. There was some brief confusion and incontinence, but no post ictal state. Telemetry negative. Orthostatics negative after IVF. ECHO stable. Symptoms consistent with vasovagal episode. UA obtained and noninfectious. Recommended patient follow up with PCP. On day of discharge, patient eating well, ambulating independently and denies any acute concerns. Notes For Next Care Provider Medication Changes From Visit none Admission HPI Per Admitting Provider 48-year-old female with past medical history significant for migraine presents with syncope. Patient was in a restaurant and had a cocktail and she was eating when suddenly felt very hot. As patient felt hot went outside and her friend was with her. While she was sitting on the chair she passed out for few seconds. Her friend was with her and she held her. Her friend told her that she passed out short moments 3 times. After she woke up she was confused for very short period time and was back to normal. No biting of the tongue. She was shaking but she attributes it to her anxiety. She had urinary incontinence during the episode. Never had this episodes before. Currently has some headache. Has some dizziness. Vision is okay. No earache. No runny nose. No sore throat. No cough. No fevers. Eating and drinking okay. Denies any chest pain or shortness of breath. No nausea. No abdominal pain. Normal bowel and bladder movements. Can walk and climb steps okay. Denies allergic reactions. Past medical history. As mentioned above Past surgical history. Colonoscopy. Dilatation curettage. Social history. . No smoking. Alcohol occasional. No drug use. Family history. Father has coronary disease. Diabetes. Lymphoma. Metabolic syndrome. Mother has hyperlipidemia. Osteoarthritis. Thyroid disorder. Son has peanut allergy. Daughter has depression. Paternal grandfather had pancreatic cancer. Emphysema. Paternal grandmother had lung cancer. Maternal grandfather had lung cancer. Admission Exam Per Admitting Provider General-Not in acute distress Head- atraumatic Eyes- PERRL. ENT- oropharynx clear Neck- supple, no JVD. Lungs- clear to auscultation no wheezing or crackles. Heart- regular rate and rhythm; no murmur, no gallop. Abdomen- normal bowel sounds, soft, nontender, no distension Extremities- no pretibial edema, no erythema seen. Neuro- alert, oriented PERRL, no facial palsy; no dysarthria; motor 5/5 bilaterally; coordination of movements normal, no pronator drift. Skin- warm & dry Discharge Exam Constitutional WD/WN, vitals as above Respiratory normal respiratory effort, lungs clear to auscultation Gastrointestinal (Abdomen) normal bowel sounds, soft, nontender, no hepatosplenomegaly Musculoskeletal no cyanosis or clubbing, extremities motor strength 5/5 Neurologic PERRL, EOMI, accommodation nl, no face palsy, no dysarthria Hospital Stay Data Consultations 01/28/24 01:19 ED Decision to Admit Stat 01/28/24 08:00 Consult Cardiology Routine Diagnostic Imagining Performed 01/28/24 07:[address] [CT head/brain wo con] Stat Pending Results Patient Have Any Pending Studies at Discharge: No Discharge Instructions Given to Patient (Per Discharging Provider) You were admitted for an episode of fainting or syncope. Your imaging did not reveal an abnormalities of brain or heart. You were seen by Cardiology who did not suspect heart related cause of syncope. Follow up with PCP to discuss need for Zio monitor or a device that tracks your heart rate over a couple days/weeks. Total Time Total Time Spent Total Time Spent (In Minutes): 45
[2024-01-28 14:55] VITALS: PULSE 92
[2024-01-28 15:15] LABS: Appearance Urine Clear (Clear); Bilirubin Urine Negative (Negative); Blood Urine Negative (Negative); Color Urine Yellow; Glucose Urine UA Negative (Negative); Ketones Urine Negative (Negative); Leukocyte Esterase Urine Negative (Negative); Nitrite Urine Negative (Negative); Protein Urine Negative (Negative); Specific Gravity Urine 1.013 (1.000-1.030); Urobilinogen Urine Negative (Negative); pH Urine 6.5 (4.5-7.5)
--- NOTE | 2024-01-28 18:16 | Electrocardiogram Report ---
Test Reason : Blood Pressure : */* mmHG Vent. Rate : 90 BPM Atrial Rate : 90 BPM P-R Int : 142 ms QRS Dur : 88 ms QT Int : 358 ms P-R-T Axes : 79 79 56 degrees QTcB Int : 437 ms Normal sinus rhythm Normal ECG No previous ECGs available Confirmed by Lukas Stephen ([id number]) on 01/28/2024 6:15:59 PM Referred By: REFERRED SELF Confirmed By: Lukas Stephen
== END 2024-01-28 15:14 | disposition home or self-care (01) ==
LOC: ED 20:24 → 4W 20:24